=== PATIENT | female | born 1995 | race Asian ===

== ENCOUNTER 2019-09-12 13:03 | Emergency (ER) | payer MEDICAID, SELFPAY ==
--- NOTE | ~2019-09-12 | US_ITS ---
EXAMINATION: US OB <=14 wk fetus w TV EXAM DATE: 09/12/2019 15:11 INDICATION: Bleeding, passing clots. 1st trimester. TECHNIQUE: Pelvic obstetrical transabdominal sonogram was performed by a technologist. There are mu ltiple grayscale and Doppler images available for interpretation. There are no earlier studies of th is gestation for comparison. FINDINGS: Uterus measures 7.3 x 3.6 x 5.0 cm, is morphologically normal without evidence of intrauter ine . There is no free pelvic fluid. Right adnexa: The ovary is not identified. There is no adnexal mass. Left adnexa: The ovary is not identified. There is no adnexal mass. Early intrauterine or recent spontaneous are common causes of elevated beta hCG in absence of intrauterine confirmation. Ultrasound can sometimes identify, but never exclud e an ectopic in the setting of positive beta hCG. Follow up as warranted clinically with s erial beta hCG levels or ultrasound. IMPRESSION: 1. No intrauterine or extrauterine identified. Reviewed, dictated and finalized at location B.
[2019-09-12 13:07] VITALS: BP 127/79; PULSE 86; RESP 16; TEMP 37.1; O2SAT 100
[2019-09-12 13:26] LABS: Basophils Absolute Auto 0.1 K/mm3 (0.0-0.1); Basophils Percent Auto 0.7 % (0.2-1.2); Eosinophils Absolute Auto 0.1 K/mm3 (0-0.3); Eosinophils Percent Auto 1.4 % (0-4.4); Hematocrit 32.9 % (37.0-47.0); Hemoglobin 10.2 g/dL (12.0-15.0); Immature Granulocyte Absolute 0.02 K/mm3 (0.00-0.031); Immature Granulocyte Percent A 0.2 % (0-0.5); Lymphocytes Absolute Auto 1.62 K/mm3 (0.9-3.2); Mean Corpuscular Hemoglobin 23.2 pg (26-34); Mean Corpuscular Volume 74.9 fl (80-100); Mean Platelet Volume 9.6 fl (7.4-10.4); Monocytes Absolute Auto 0.5 K/mm3 (0.1-0.6); Monocytes Percent Auto 6.7 % (2.6-8.5); Neutrophils Absolute Auto 5.8 K/mm3 (1.3-6.7); Platelet Count Result 322 k/mm3 (150-375); Red Blood Count 4.39 M/mm3 (4.2-5.4); Red Cell Distribution Width 18.3 % (11.5-14.5); White Blood Count 8.1 K/mm3 (4.5-10.0)
[2019-09-12] MEDS: SODIUM CHLORIDE 0.9% IV 1,000 ML 999 ML IV CONT (15:07)
--- NOTE | 2019-09-12 15:51 | ED.ABDPAIN ---
HPI - Abdominal Pain General Chief Complaint: Vaginal Bleeding Stated Complaint: 8 weeks preg - bleeding Time Seen by Provider: 09/12/19 14:21 Source: patient Mode of arrival: ambulatory Limitations: no limitations and language barrier (Patient's family is present and translating effectively patient does speak sufficient Persian) History of Present Illness HPI narrative: Patient is a 23-year-old female who presents to emergency department with lower abdominal cramping and vaginal bleeding that started on Monday noting that she is G1, P0 was seen at an outside hospital had ultrasound showing intrauterine notes that she is roughly 14 weeks . Patient notes last night she began to have increasing bleeding passing larger clots with cramping that is intermittent in nature. 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 Related Data Home Medications Medication Instructions Recorded Confirmed No Home Medications 09/12/19 09/12/19 Allergies Allergy/AdvReac Type Severity Reaction Status Date / Time No Known Allergies Allergy Verified 09/12/19 15:09 Review of Systems Review of Systems: All systems reviewed & are unremarkable except as noted in HPI and below PMFSH Social History Social History (Updated 09/12/19 @ 16:00 by Kendall Conteh PA-C) Smoking status: Never smoker Exam Narrative: Exam Narrative: GENERAL: Well-appearing, well-nourished, and in no acute distress. HEAD: Normocephalic, atraumatic. EYES: PERRLA and EOMI. ENT: Nares clear, no rhinorrhea or epistaxis. Mucous membranes moist. CHEST: Clear to auscultation. No respiratory distress. No wheezes rales or rhonchi HEART: Regular rate and rhythm. No murmur heard. Normal peripheral pulses. ABDOMEN: Soft, nontender, nondistended FEMALE GENITOURINARY: Tissue in the vault which will be sent for pathology otherwise no heavy bleeding small amount of blood in the vaginal vault otherwise unremarkable exam EXTREMITIES: Normal range of motion. No edema. SKIN: Warm, dry, no rash. NEURO: No focal deficits. Alert and oriented x3. Cranial nerves II through XII grossly intact PSYCH: Normal mood and affect. Course Course Emergency Course: Patient in the room at this time aware of case findings treatment plan and diagnosis agreeing to follow-up as directed or to return if symptoms worsen or concerns Consultations Consultation #1: Discussed case with roads and parking lots sweeper operator who will follow the patient in clinic Date: 09/12/19 Time: 16:01 Vital Signs Vital signs: Vital Signs Temperature 98.7 F 09/12/19 13:07 Pulse Rate 86 09/12/19 13:07 Respiratory Rate 16 09/12/19 13:07 Blood Pressure 127/79 09/12/19 13:07 Pulse Oximetry 100 09/12/19 13:07 Temperature 98.7 F 09/12/19 13:07 Pulse Rate 86 09/12/19 13:07 Respiratory Rate 16 09/12/19 13:07 Blood Pressure 127/79 09/12/19 13:07 Pulse Oximetry 100 09/12/19 13:07 MDM - Abdominal Pain MDM Narrative Medical decision making narrative: Patient with miscarriage in the room in no distress aware of case findings treatment plan and discussion with roads and parking lots sweeper operator agreeing to follow-up as directed or to return if symptoms worsen or concerns Lab Data Result diagrams: 09/12/19 13:15 Labs: Lab Results 09/12/19 09/12/19 09/12/19 Range/Units 13:15 13:15 13:15 WBC 8.1 (4.5-10.0) K/mm3 RBC 4.39 (4.2-5.4) M/mm3 Hgb 10.2 L (12.0-15.0) g/dL Hct 32.9 L (37.0-47.0) % MCV 74.9 L (80-100) fl MCH 23.2 L (26-34) pg MCHC 31.0 L (32-36) g/dl RDW 18.3 H (11.5-14.5) % Plt Count 322 (150-375) k/mm3 MPV 9.6 (7.4-10.4) fl Immature Gran % (Auto) 0.2 (0-0.5) % Neut % (Auto) 71.0 (45.5-73.1) % Lymph % (Auto) 20.0 (18.3-44.2) % [place] % (Auto) 6.7 (2.6-8.5) % Eos % (Auto) 1.4 (0-4.4) % Baso % (Auto) 0.7 (0.2-1.2) % Lymph # (Auto) 1.62 (0.9-3.2) K/mm3 [place] # (Auto) 0.5 (0.1-0.6) K/mm3 Eos # (Auto) 0
--- NOTE | 2019-09-12 16:13 | PC.NURSE ---
call placed to [facility]ale[facility] to notify of demise
--- NOTE | 2019-09-12 17:07 | PC.NURSE ---
mts notified of .
[2019-09-12 17:08] VITALS: BP 120/70; PULSE 78; RESP 18; O2SAT 99
== END 2019-09-12 17:11 | disposition home or self-care (01) ==
PROVIDERS: Emergency Provider Emergency Medicine
DX: O03.9 Complete or unspecified spontaneous abortion without complication (principal)
CPT/HCPCS: 36415; 76801; 76817; 84702; 85025; 85461; 88305; 96360; 99284; J7030

== ENCOUNTER 2019-10-03 15:27 | Outpatient (RCR) | payer MEDICAID, SELFPAY ==
[2019-09-26 16:35] LABS: Beta HCG Quantitative 59.19 mIU/ML
== END 2019-12-18 23:59 | disposition home or self-care (01) ==
LOC: ANHLAB 15:27
PROVIDERS: PCP Obstetrics & Gynecology; Visit Provider Obstetrics & Gynecology
DX: O03.9 Complete or unspecified spontaneous abortion without complication (principal)
CPT/HCPCS: 36415; 84702

== ENCOUNTER 2019-10-10 15:20 | Outpatient (CLI) | payer MEDICAID, SELFPAY ==
[2019-10-10 16:18] LABS: Beta HCG Quantitative < 2.39 mIU/ML
== END 2019-10-10 15:21 | disposition home or self-care (01) ==
PROVIDERS: PCP Obstetrics & Gynecology; Visit Provider Obstetrics & Gynecology
DX: O03.9 Complete or unspecified spontaneous abortion without complication (principal); Z3A.00 Weeks of gestation of pregnancy not specified
CPT/HCPCS: 36415; 84702

== ENCOUNTER → 2021-04-05 00:46 | Outpatient (CLI) | payer OTHER, SELFPAY ==
[2021-04-06 10:58] LABS: SARS-CoV-2 RNA PCR Negative
== END ==
PROVIDERS: PCP Family Medicine; Visit Provider Family Medicine
DX: R05.1 Acute cough (principal); Z20.822 Contact with and (suspected) exposure to COVID-19
CPT/HCPCS: C9803; U0003; U0005

== ENCOUNTER 2021-05-10 14:55 | Outpatient (CLI) | payer OTHER, SELFPAY ==
--- NOTE | ~2021-05-10 | US_ITS ---
EXAMINATION: US OB <= 14 weeks fetus DATE: 05/10/2021 16:04 INDICATION: First trimester dating TECHNIQUE: Real-time pelvic transabdominal and transvaginal ultrasound was performed. COMPARISON: None. FINDINGS: The uterus measures 9.1 x 6.1 x 7 cm. There is an intrauterine gestational sac. A yolk sac is identified. heart motion is identified measuring 176 beats per minute (bpm) by M-mode Doppl er. The crown rump length measures 2.0 cm , which correlates with an estimated gestational age of 8 weeks and 4 day(s) (+/-) 5 day(s). The left ovary is not visualized however no left adnexal abnormality is seen. The right ovary measure s 3.7 x 2.9 x 3.0 cm. There is normal vascular flow in the right ovary. There is no free fluid in the pelvis. IMPRESSION: 1. Live intrauterine with an estimated gestational age of 8 weeks and 4 day(s) (+/-) 5 day( s) and an estimated delivery date of 12/16/2021. Reviewed, dictated and finalized at location F. RUNNER IMPRESSION: 1. Live intrauterine with an estimated gestational age of 8 weeks and 4 day(s) (+/-) 5 day(s) and an estimated delivery date of 12/16/2021.
== END 2021-05-10 14:56 | disposition home or self-care (01) ==
PROVIDERS: PCP Family Medicine; Visit Provider Obstetrics & Gynecology
DX: Z36.9 Encounter for antenatal screening, unspecified (principal); Z3A.08 8 weeks gestation of pregnancy
CPT/HCPCS: 76801

== ENCOUNTER 2021-11-05 15:22 | Outpatient (RCR) | payer SELFPAY | END 2021-12-17 13:42 | disposition home or self-care (01) | LOC: ANHDMC 15:22 | PROVIDERS: PCP Family Medicine; Visit Provider Obstetrics & Gynecology | DX: O24.419 Gestational diabetes mellitus in pregnancy, unspecified control (principal); Z3A.00 Weeks of gestation of pregnancy not specified; Z71.89 Other specified counseling | CPT/HCPCS: G0108 ==

== ENCOUNTER 2021-12-09 17:03 | Outpatient (RCR) | payer OTHER, SELFPAY ==
[2021-10-28 18:00] VITALS: BP 109/66; PULSE 83
[2021-11-11 17:56] VITALS: BP 116/68; PULSE 83
[2021-11-18 17:16] VITALS: BP 114/64; PULSE 89
[2021-11-23 17:04] VITALS: BP 120/77; PULSE 98
[2021-11-26 15:24] VITALS: BP 106/70; PULSE 91
[2021-11-29 16:33] VITALS: BP 112/64; PULSE 82
[2021-12-06 16:55] VITALS: BP 110/76; PULSE 92
--- NOTE | 2021-12-06 18:20 | PC.NURSE ---
Called Dr. Han with ultrasound report. Informed of 2 variables noted on NST, but otherwise reactive. BPP 8/8 and MATTEO is 7.7, which is down from MATTEO of 16.9 one week ago. Will do ROM plus. If negative, may D/C home.
--- NOTE | ~2021-12-09 | US_ITS ---
EXAMINATION: US OB limited DATE: 11/18/2021 17:49 INDICATION: Assess amniotic fluid index during third trimester of TECHNIQUE: Real-time ultrasound of the pelvis was performed. The interpreting radiologist was not pre sent for the study. COMPARISON: None. FINDINGS: There is a single living fetus in vertex presentation which obscures the region of the cervix. The p lacenta is anterior. heart rate is 167 beats per minute (bpm). The amniotic fluid index is 13.4 cm, which is normal. IMPRESSION: 1. Single living fetus in vertex presentation with heart rate of 167 bpm. 2. Normal amniotic fluid index of 13.4 cm. Reviewed, dictated and finalized at location A. IMPRESSION: 1. Single living fetus in vertex presentation with heart rate of 167 bpm . 2. Normal amniotic fluid index of 13.4 cm.
--- NOTE | ~2021-12-09 | US_ITS ---
EXAMINATION: US OB follow up w BPP DATE: 11/12/2021 16:21 INDICATION: Amniotic fluid index: Biophysical profile, and biometric assessment during third trimeste r TECHNIQUE: Real-time pelvic ultrasound was performed. The interpreting radiologist was not present fo r the study. COMPARISON: None. FINDINGS: There is a single living fetus in vertex presentation. The placenta is anterior. heart rate is 165 beats per minute (bpm). The amniotic fluid index is 16.7 cm which is normal (normal range: 8.1 cm to 24.8 cm). Biophysical profile performed by the technologist: breathing (30 sec sustained breathing in 30 minutes): 2 out of 2 movement (3 gross body movements in 30 minutes): 2 out of 2 tone (one episode of jyhofyt-kxxjhlcvd-cezqgua limb movement): 2 out of 2 Amniotic fluid pocket (2 cm): 2 out of 2 Total score: 8 out of 8 The following biometric data were obtained: Biparietal diameter (BPD): 8.4 cm; head circumference (HC): 32.1 cm; abdominal circumference (AC): 34 .1 cm; femur length (FL): 7.3 cm. These measurements are concordant. Estimated weight is 3125 g +/- 468 g, which correlates with the 96th percentile when 12/18/2021 is used as estimated date of delivery. As single measurements, these parameters are each equal to the following estimated gestational ages w ith ranges of +/- 2 standard deviations: BPD: 33 weeks 5 days +/- 3 weeks 1 days. HC: 36 weeks 2 days +/- 2 weeks 5 days. AC: 38 weeks 1 days +/- 3 weeks 0 days. FL: 37 weeks 1 days +/- 3 weeks 1 days. estimated gestational age based solely on measurements from this exam is 36 weeks 2 days +/- 2 weeks 4 days. IMPRESSION: 1. Single living fetus in vertex presentation. 2. Biophysical profile 8 out of 8. 3. Normal amniotic fluid index. 4. Estimated weight is 3125 g +/- 468 g, which correlates with the 96th percentile when 12/19/19 22 is used as estimated date of delivery. Reviewed, dictated and finalized at location B. IMPRESSION: 1. Single living fetus in vertex presentation. 2. Biophysical profile 8 out of 8. 3. Normal amniotic fluid index. 4. Estimated weight is 3125 g +/- 468 g, which correlates with the 96th p ercentile when 12/18/2021 is used as estimated date of delivery.
--- NOTE | ~2021-12-09 | US_ITS ---
EXAMINATION: US OB limited w BPP DATE: 12/06/2021 17:25 INDICATION: Gestational diabetes. Evaluate biophysical profile and MATTEO. TECHNIQUE: Real-time ultrasound of the pelvis was performed. COMPARISON: 11/29/2021. FINDINGS: There is a single living fetus in vertex presentation, longitudinal lie. The placenta is anterior an d appears to be clear of the cervical os. The cervix is partially obscured by head position but appea rs to be closed. heart rate is 137 beats per minute (bpm). The amniotic fluid index is 7.7 cm, which is at the lower end of the normal range.] Biophysical profile performed by the technologist: breathing (30 sec sustained breathing in 30 minutes): 2 out of 2 movement (3 gross body movements in 30 minutes: 2 out of 2 tone (one episode of oosrkys-ulrebhcii-yybkoxz limb movement): 2 out of 2 Amniotic fluid pocket (2 cm): 2 out of 2 Total score: 2 out of 8 IMPRESSION: 1. Single living fetus in vertex presentation. 2. Biophysical profile 8 out of 8. 3. Low-normal MATTEO of 7.7 cm. Reviewed, dictated and finalized at location K.
--- NOTE | ~2021-12-09 | US_ITS ---
EXAMINATION: US OB limited DATE: 11/29/2021 17:16 INDICATION: GDM and MATTEO TECHNIQUE: Real-time ultrasound of the pelvis was performed. COMPARISON: 11/26/2021. FINDINGS: There is a single living fetus in vertex presentation, longitudinal lie. The placenta is anterior. F etal heart rate is 121 beats per minute (bpm). The amniotic fluid index is 16.9 cm, which is normal ( 5th to 95th percentile range is 7.5-24.4 cm. IMPRESSION: 1. Single living fetus in vertex presentation. 2. MATTEO 16.9 cm, which is normal. Reviewed, dictated and finalized at location K.
--- NOTE | ~2021-12-09 | US_ITS ---
EXAMINATION: US OB limited DATE: 11/26/2021 16:00 INDICATION: Gestational diabetes. Third trimester. TECHNIQUE: Real-time ultrasound of the pelvis was performed. COMPARISON: Ultrasound 11/23/2021, 05/10/2021 FINDINGS: There is a single fetus in vertex presentation. The placenta is anterior. heart rate is 149 be ats per minute (bpm). The amniotic fluid index is 12.5 cm cm, which is normal. The following biometric data were obtained: Biparietal diameter (BPD): 8.8 cm; head circumference (HC): 33.0 cm; abdominal circumference (AC): 32 .3 cm; femur length (FL): 7.3 cm. These measurements are concordant. Estimated weight is 2972 g +/- 446 g, which correlates with the 47th percentile when 12/18/21 is used as estimated date of delivery. As single measurements, these parameters are each equal to the following estimated gestational ages: BPD: 35 weeks 2 days. HC: 37 weeks 4 days. AC: 36 weeks 2 days. FL: 37 weeks 3 days. estimated gestational age based solely on measurements from this exam is 36 weeks 5 days +/- 2 weeks 4 days. IMPRESSION: 1. Single living fetus in vertex presentation. 2. Estimated weight is 2972 g +/- 446 g, which correlates with the 47th percentile when 2 is used as estimated date of delivery. Note that the estimated date of delivery from the first ultr asound on 05/10/2021 was 12/16/2021. Reviewed, dictated and finalized at location A. IMPRESSION: 1. Single living fetus in vertex presentation. 2. Estimated weight is 2972 g +/- 446 g, which correlates with the 47th percentile when 12/18/21 is used as estimated date of delivery. Note that the es timated date of delivery from the first ultrasound on 05/10/2021 was 12/16/2021.
--- NOTE | ~2021-12-09 | US_ITS ---
US OB limited 12/09/2021 17:36 Indication: Evaluate amniotic fluid index. Procedure: High-resolution Limited obstetrical ultrasound using transabdominal technique Comparison: Ultrasound dated 12/06/2021 Findings: There is a single living intrauterine in vertex presentation. heart rate is 130 BPM. Placenta is anterior without previa. Amniotic fluid index is 7.72 (normal range for gestati onal age is 7.3-23.7 cm). The placenta is anterior. Impression: 1: Normal MATTEO measures 17.72 cm. Reviewed, dictated and finalized at location A. Impression: 1: Normal MATTEO measures 17.72 cm.
--- NOTE | ~2021-12-09 | US_ITS ---
EXAMINATION: US OB limited w BPP DATE: 10/28/2021 17:26 CDT INDICATION: Amniotic fluid index. Evaluate well-being. TECHNIQUE: Real-time transabdominal obstetric ultrasound. FINDINGS: No prior studies for comparison. There is a single living fetus in vertex presentation. The placenta is anterior without placenta pre via. cardiac activity and movement is noted with a heart rate of 135 beats per minute. N ormal MATTEO measures 14.8 cm. Biophysical profile: breathin of 2 movement: 2 of 2 tone: 2 of 2 Amniotic flud pocket: 2 of 2 Total score: 8 of 8 IMPRESSION: 1. Single living intrauterine in vertex presentation. 2: Total biophysical profile score of 8/8. 3: Normal MATTEO measures 14.8 cm. Reviewed, dictated and finalized at location A.
--- NOTE | ~2021-12-09 | US_ITS ---
EXAMINATION: US OB limited DATE: 11/23/2021 17:36 INDICATION: Gestational diabetes. Third trimester. TECHNIQUE: Real-time ultrasound of the pelvis was performed. COMPARISON: Ultrasound 11/18/2021 FINDINGS: There is a single fetus in vertex presentation. The placenta is anterior. heart rate is 146 be ats per minute (bpm). The amniotic fluid index is 15.8 cm, which is normal. IMPRESSION: 1. Single living fetus in vertex presentation. 2. Normal amniotic fluid index. Reviewed, dictated and finalized at location E.
[2021-12-09 17:45] VITALS: BP 118/77; PULSE 93
== END 2022-01-26 23:59 | disposition home or self-care (01) ==
LOC: ANHOBOP 17:03
PROVIDERS: PCP Family Medicine; Visit Provider Obstetrics & Gynecology
DX: O36.8330 Maternal care for abnormalities of the fetal heart rate or rhythm, third trimester, not applicable or unspecified (principal); O36.8130 Decreased fetal movements, third trimester, not applicable or unspecified; O24.419 Gestational diabetes mellitus in pregnancy, unspecified control; Z3A.32 32 weeks gestation of pregnancy; Z3A.34 34 weeks gestation of pregnancy; Z3A.38 38 weeks gestation of pregnancy
CPT/HCPCS: 59025; 76815; 76816; 76819; 84112

== ENCOUNTER 2021-12-12 13:56 | Inpatient (IN) | payer OTHER, SELFPAY ==
[2021-12-12] VITALS (30 sets, daily range): BP systolic 91–127; BP diastolic 60–94; PULSE 71–191; TEMP 35.9–36.6; O2SAT 98; BMI 31.0
--- OUTSIDE RECORDS SUMMARY | 2021-12-12 16:24 | XMS_ITS ---
:1995 Author Care Team Providers Name Role Phone KAYLEIGH LOPEZ MD Primary Care Provider [phone] Allergies Code Code System Name Reaction Severity Status Onset NKDA ? Medications Name Status Start Date Stop Date ? ? azithromycin 250 mg tablet Active ? Not a vailable benzonatate 200 mg capsule Active ? Not a vailable cyanocobalamin (vit B-12) 1,000 mcg/mL injection solution Active ? Not available Inject 1 mL every month by subcutaneous route. ergocalciferol (vitamin D2) 1,250 mcg (50,000 unit) capsule Acti ve ? Not available Take 1 capsule every week by oral route as directed. ferrous sulfate 325 mg (65 mg iron) tablet Active ? Not available Take 1 tablet twice a day by oral route with meals. ferrous sulfate 325 mg (65 mg iron) tablet,delayed Active ? Not available release Flublok Quad 0496-9183 (PF) 180 mcg (45 mcg x 4)/0.5 mL Complete d ? 04/06/2020 IM syringe ondansetron 4 mg disintegrating tablet Active ? Not available prednisone 10 mg tablet Active ? Not avai lable sumatriptan 50 mg tablet Active ? Not gilbert ilable triamcinolone acetonide 0.1 % topical cream Active ? Not available Problems Name Status Onset Date Source ? 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 Vitamin D Deficiency Active 08/03/2020 ? Anemia Active 08/03/2020 ? Menorrhagia Active 11/04/2020 ? Procedures None recorded. Results Lab Results
--- OUTSIDE RECORDS SUMMARY | 2021-12-12 16:24 | XMS_ITS ---
:1995 Author Care Team Providers Name Role Phone KAYLEIGH LOPEZ MD Primary Care Provider [phone] Allergies Code Code System Name Reaction Severity Status Onset NKDA ? Medications Name Status Start Date Stop Date ? ? Flublok Quad (PF) 180 mcg (45 mcg x 4)/0.5 mL Complete d ? 04/06/2020 IM syringe sumatriptan 50 mg tablet Active ? Not gilbert ilable triamcinolone acetonide 0.1 % topical cream Active ? Not available Problems Name Status Onset Date Source ? Migraine without Aura Active 04/06/2020 ? Fatigue Active 04/06/2020 ? 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 Procedures None recorded. Results Lab Results None recorded. Past Encounters None recorded. Social History Tobacco Smoking Status Never Smoker Vaccine List None recorded. Plan of Care Reminders Provider Appointments None recorded. ? ? Lab None recorded. ? ? Referral None recorded. ? ? Procedures None recorded. ? ? Surgeries None recorded. ? ? Imaging None recorded. ? ? Vitals 04/29/2020 03:45PM FOLLOW UP Height Weight BMI Blood Pressure 4 ft 9 in 111 lbs 24 kg/m2 106/76 mm[Hg] 04/06/2020 04:00PM [facility] NEW PT Height Weight BMI Blood Pressure 4 ft 9 in 112 lbs 24.2 kg/m2 120/62 mm[Hg]
--- NOTE | 2021-12-12 16:59 | LDADM ---
This patient, Tina Marie, was admitted to Labor/Delivery/Recovery 106 on 12/12/21 at 13:56. Plans for labor, pain management and were discussed with patient. Patient/family oriented to hospital policies and general routines including ID bracelet, bed and alarms, visiting hours, pain management, procedures, bathroom and other care routines, personal items, smoking policy, room service/diet and guest tray routines, infant security routines, and visiting hours. Patient/Family are encouraged to report perceived risks to care and to ask questions if they do not understand what they are told or what they should do. See OBIX for further documentation.
[2021-12-12] MEDS: OXYTOCIN 30 UNITS/NS 500 ML 30 UNITS/500 ML BAG 6 UNITS IV CONT (17:20)
[2021-12-12] MEDS: LACTATED RINGERS 1,000 ML 125 ML IV CONT (17:22)
[2021-12-12 17:26] LABS: Basophils Absolute Auto 0.1 K/mm3 (0.0-0.1); Basophils Percent Auto 0.4 % (0.2-1.2); Eosinophils Percent Auto 0.1 % (0-4.4); Hematocrit 39.3 % (37.0-47.0); Hemoglobin 13.2 g/dL (12.0-15.0); Immature Granulocyte Absolute 0.14 K/mm3 (0.00-0.031); Lymphocytes Absolute Auto 1.29 K/mm3 (0.9-3.2); Lymphocytes Percent Auto 8.8 % (18.3-44.2); Mean Corpuscular HGB Conc 33.6 g/dl (32-36); Mean Corpuscular Hemoglobin 27.8 pg (26-34); Mean Corpuscular Volume 82.7 fl (80-100); Mean Platelet Volume 9.8 fl (7.4-10.4); Monocytes Absolute Auto 0.7 K/mm3 (0.1-0.6); Monocytes Percent Auto 4.6 % (2.6-8.5); Neutrophils Absolute Auto 12.5 K/mm3 (1.3-6.7); Neutrophils Percent Auto 85.1 % (45.5-73.1); Platelet Count Result 164 k/mm3 (150-375); Red Blood Count 4.75 M/mm3 (4.2-5.4); Red Cell Distribution Width 19.1 % (11.5-14.5); White Blood Count 14.7 K/mm3 (4.5-10.0)
--- NOTE | 2021-12-12 17:55 | WPDANESEPP ---
Anes - Eval Pre Procedure Procedure: labor epidural Date/Time: 12/12/21 17:55 Surgeon: charline Preop Diagnosis: pain during labor Pre Op Diagnosis: IOL Patient Data Age: 26 Gender: F Height: 1.45 m Weight: 65 kg Last Vital Signs Pulse 93 12/12/21 17:45 BP 125/83 12/12/21 17:45 O2 Del Method Room Air 12/12/21 16:53 Allergies Allergy/AdvReac Type Severity Reaction Status Date / Time No Known Allergies Allergy Verified 12/12/21 17:09 Home Medications Medication Instructions Recorded Confirmed Type vitamin #56-iron 35 mg 1 cap PO DAILY #90 caps 05/20/21 12/12/21 Rx and 5 mg-folic acid 1 mg-dha capsule ferrous sulfate 325 mg (65 mg 325 mg PO TID #270 tabs 09/30/21 12/12/21 Rx iron) tablet blood-glucose meter #1 ea 11/09/21 11/28/21 Rx Vitamin D3 3,000 units PO DAILY 11/23/21 12/12/21 History lancets 30 gauge and blood glucose #50 ea 11/23/21 11/28/21 Rx strips combo pack blood sugar diagnostic (Blood #50 ea 12/06/21 Rx Glucose Test strips) insulin NPH isoph U-100 human 100 28 unit subcut DAILY 12/12/21 12/12/21 History unit/mL (3 mL) subcutaneous pen (Humulin N NPH U-100 Insulin KwikPen) insulin lispro 100 unit/mL 16 unit subcut DAILY 12/12/21 12/12/21 History subcutaneous pen Laboratory Tests 12/12/21 12/12/21 12/12/21 16:39 16:39 16:39 WBC 14.7 K/mm3 H K/mm3 (4.5-10.0) RBC 4.75 M/mm3 M/mm3 (4.2-5.4) Hgb 13.2 g/dL D g/dL (12.0-15.0) Hct 39.3 % % (37.0-47.0) MCV 82.7 fl fl (80-100) MCH 27.8 pg pg (26-34) MCHC 33.6 g/dl g/dl (32-36) RDW 19.1 % H % (11.5-14.5) Plt Count 164 k/mm3 k/mm3 (150-375) MPV 9.8 fl fl (7.4-10.4) Immature Gran % (Auto) 1.0 % H % (0-0.5) Neut % (Auto) 85.1 % H % (45.5-73.1) Lymph % (Auto) 8.8 % L % (18.3-44.2) [place] % (Auto) 4.6 % % (2.6-8.5) Eos % (Auto) 0.1 % % (0-4.4) Baso % (Auto) 0.4 % % (0.2-1.2) Lymph # (Auto) 1.29 K/mm3 K/mm3 (0.9-3.2) [place] # (Auto) 0.7 K/mm3 H K/mm3 (0.1-0.6) Eos # (Auto) 0.0 K/mm3 K/mm3 (0-0.3) Baso # (Auto) 0.1 K/mm3 K/mm3 (0.0-0.1) Abs Immat Gran (auto) 0.14 K/mm3 H K/mm3 (0.00-0.031) Absolute Neuts (auto) 12.5 K/mm3 H K/mm3 (1.3-6.7) Absolute Nucleated RBC 0.0 K/mm3 K/mm3 (0.0-0.012) Nucleated RBC % 0.0 % % (0.0-0.2) RPR Pending Blood Type Pending Antibody Screen Pending Patient hx anesthesia problems: none Family hx anesthesia problems: none Results Review: All pre-operative results and documents have been reviewed as part of the pre-operative evaluation. [facility] Past Medical History Medical History Miscarriage within last 12 months No active medical problems Surgical History Surgical History No pertinent past surgical history Family History Family History Other No pertinent family history Social History Social History Smoking status: Never smoker Substance use: never Spiritual care concerns: No Exam Day of Procedure 12/12/21 17:55
--- NOTE | 2021-12-12 18:00 | PC.NURSE ---
Spoke with Dr. Han at 1611. Informed patient's cervical exam is unchanged from admission, but patient had a FHR deceleration lasting 2.5 minutes. Received verbal orders to keep and induce patient with high dose oxytocin.
--- NOTE | 2021-12-12 18:02 | PC.NURSE ---
Used [employer] literacy teacher to complete patient's admission questions and induction education. [employer] literacy teacher ID: [id number]. Patient's primary language is Gujarati.
[2021-12-12 18:50] LABS: Glucose Point of Care 61 mg/dl (65-105)
[2021-12-12 22:38] LABS: Glucose Point of Care 74 mg/dl (65-105)
[2021-12-13] VITALS (291 sets, daily range): BP systolic 79–174; BP diastolic 45–118; PULSE 25–198; RESP 16–18; TEMP 36–37; O2SAT 68–100
[2021-12-13] MEDS: LACTATED RINGERS 1,000 ML 125 ML IV CONT ×4 (00:08→10:42)
--- NOTE | 2021-12-13 01:58 | PM.IMHP ---
H&P: HPI History of Present Illness Date/Time: 12/13/21 01:58 Chief Complaint: Vaginal bleeding Narrative: [employer] tabulating clerk services used during encounter. Patient's primary language is Gujarati, however, an tabulating clerk for this language was unavailable. Patient stated that she is also able to speak Minda. Therefore Imnda tabulating clerk, Janina (ID# [id number]), was used. Patient is a 26-year-old LMP 03/13/2021 currently 39 weeks 2 days gestation with JOHANNA 12/18/2021 who presented to labor and delivery during the afternoon of 12/12/2021 at 39 weeks 1 day gestation with complaints of vaginal bleeding. Patient is dated by LMP c/w US on 05/11/21 at 8w gestation. At approximately 2:00 p.m., patient noticed a small amount of vaginal bleeding. She was concerned and presented to labor and delivery for further evaluation. Patient denied any contractions or leakage of fluid. Reported good movement. During evaluation, patient was noted to be approximately 3 cm dilated with likely bloody show due to early labor phase. Also during evaluation, a spontaneous deceleration was noted that recovered. Decision made to admit patient to labor and delivery and proceed with labor augmentation. course complicated by diagnosis of gestational diabetes which is controlled with insulin. Review of Systems Review of Systems: All systems reviewed & are unremarkable except as noted in HPI and below Constitutional: Constitutional: Reports as per HPI and Reports no additional constitutional complaints Eyes: Eyes: Reports as per HPI and Reports no additional eye complaints ENT: Reports system reviewed and no additional complaints, except as documented and Reports as per HPI Cardiovascular: Cardiovascular: Reports as per HPI and Reports no additional cardiovascular complaints Respiratory: Respiratory: Reports as per HPI and Reports no additional respiratory complaints Gastrointestinal: Gastrointestinal: Reports as per HPI and Reports no additional gastrointestinal complaints Genitourinary: Genitourinary: Reports no additional female genitourinary complaints and Reports as per HPI Musculoskeletal: Musculoskeletal: Reports no additional musculoskeletal complaints and Reports as per HPI Integumentary/Breasts: Skin/Breast: Reports system reviewed and no additional complaints, except as docu and Reports as per HPI Neurologic: Reports system reviewed and no additional complaints, except as documented and Reports as per HPI Psychiatric: Psychiatric: Reports no additional psychiatric complaints and Reports as per HPI Endocrine: Endocrine: Reports no additional endocrine complaints and Reports as per HPI Hematologic/Lymphatic: Hematologic/Lymphatic: Reports no additional hematologic/lymphatic complaints and Reports as per HPI Allergic/Immunologic: Allergic/Immunologic: Reports no additional allergic/immunologic complaints and Reports as per HPI PMFSH Past Medical History Medical History Miscarriage within last 12 months No active medical problems Surgical History Surgical History No pertinent past surgical history Family History Family History Other No pertinent family history Social History Social History Smoking status: Never smoker Substance use: never Spiritual care concerns: No Meds Home Medications and Allergies Home Medications Medication Instructions Recorded Confirmed Type vitamin #56-iron 35 mg 1 cap PO DAILY #90 caps 05/20/21 12/12/21 Rx and 5 mg-folic acid 1 mg-dha capsule ferrous sulfate 325 mg (65 mg 325 mg PO TID #270 tabs 09/30/21 12/12/21 Rx iron) tablet blood-glucose meter #1 ea 11/09/21 11/28/21 Rx Vitamin D3 3,000 units PO DAILY 11/23/21 12/12/21 History lancets 30 gauge and blood
--- NOTE | 2021-12-13 01:58 | PM.OBPNLAB ---
Pain Control Date/time seen: 12/13/21 01:58 Called by RN and asked to come in to evaluate tracing. Prolonged deceleration for approx. 7 mins. noted after epidural administration. Tracing currently recovered to baseline and is category 1. Through [employer] spanish interpreter services (Janina [id number]), situation discussed with patient and family. SVE /-2. AROM performed, meconium stained fluid noted. IUPC placed. Western shows contractions q2-3 mins. Will continue to monitor. Plan is to restart pitocin.
--- NOTE | 2021-12-13 02:21 | WPDHPUPDATE1 ---
History and Physical Update Update Date/Time: 12/13/21 02:21 History and Physical has been reviewed, including an updated exam of the patient. There are NO changes in the patient's condition. Risks, benefits, and alternatives have been discussed and questions answered. Patient agrees to proceed with procedure.
[2021-12-13 02:29] LABS: Glucose Point of Care 109 mg/dl (65-105)
[2021-12-13 04:28] LABS: Glucose Point of Care 93 mg/dl (65-105)
[2021-12-13 06:39] LABS: Glucose Point of Care 67 mg/dl (65-105)
[2021-12-13 07:53] LABS: Rapid Plasma Reagin Non-Reactive (NonReactive)
[2021-12-13 08:27] LABS: Glucose Point of Care 62 mg/dl (65-105)
[2021-12-13] MEDS: LIDOCAINE HCL 1% PF 30 ML VIAL (11:44)
[2021-12-13] MEDS: OXYTOCIN 30 UNITS/NS 500 ML 30 UNITS/500 ML BAG 125 UNITS IV CONT (11:56)
[2021-12-13] MEDS: ceFAZolin 2 GM/D5W 50 ML 2 GM/50 ML BAG IVPB (13:48)
[2021-12-13] MEDS: IBUPROFEN 600 MG TABLET PO ×2 (13:53→23:31)
--- NOTE | 2021-12-13 14:47 | P.PCNOB_ITS ---
OB - Delivery Note Procedure Delivery date: 12/13/21 Procedure: Spontaneous vaginal delivery Events: Gestational Diabetes Induction method: Per Pitocin Protocol Delivery augmentation: Rupture of Membranes Delivery monitor: External FHT and Internal Uterine Route of delivery: Episiotomy description: None Laceration Description: Perineal - 4th Degree Delivery repair: vicryl (3.0 vicryl) Specimen: Yes (placenta and cord) Quantitative Blood Loss (ml): 450 Anesthesia type: Epidural Disposition: Floor Complications: None Narrative: She was admitted in early labor after a spontaneous deceleration was present. She was 3 cm. She had labor augmented with pitocin. During labor she had a 7 minute deceleration. Her cervix was 6 cm at that time. She had assisted rupture of membranes and thick meconium noted. The tracing improved. She continued to progress in labor. She was completed dilated at approximately 8am the morning of 12/13/2021. [employer] Technician services were used to instruct on pushing initially. She pushed for approximately 2 hours and started . She delivered a female . The anterior shoulder was delivered and nose and mouth suctioned. The rest of the baby was delivered. Thick meconium noted. The infant was vigorous and crying and placed on maternal abdomen. Delayed cord clamping for approximately 40 sec until cord was apulsatile. The was then doubly clamped and cut. The placenta delivered spontaneously and intact. Cord blood and venous gases from cord obtained. Unable to obtain arterial gases. She sustained a fourth degree laceration which was repaired with 3.0 vircryl. Sponge count correct. Baby Date of : 12/13/21 Time of : 11:32 Weeks of gestation at delivery: 39 Infant gender: Female Weight (pounds): 8 Weight (ounces): 1 presentation: vertex position: Left Occiput Anterior Placenta delivery description: Spontaneous Cord Vessel Description: 3 Vessels, Clamped/Cut and Delayed Cord Clamping score one minute: 8 score five minutes: 9 AMG Delivery Billing Delivery Delivery: Delivery Charge
--- NOTE | 2021-12-13 15:15 | PC.NURSE ---
Patient transferred to post room #283 via [id number]. Support person present. Oriented to unit, room, information board, rooming in, admission packet and security measures. Patient verbalizes understanding.
[2021-12-13] MEDS: ACETAMINOPHEN 325 MG TABLET 650 MG PO (16:04)
[2021-12-13] MEDS: SIMETHICONE 80 MG TAB.CHEW PO (23:32)
[2021-12-14 01:00] VITALS: BP 85/52; PULSE 104; RESP 18; TEMP 36.6; O2SAT 100
[2021-12-14 05:35] VITALS: BP 88/48; PULSE 89; RESP 18; TEMP 36.5; O2SAT 100
[2021-12-14 06:19] LABS: Hematocrit 25.7 % (37.0-47.0); Hemoglobin 8.8 g/dL (12.0-15.0)
[2021-12-14 07:30] VITALS: BP 103/63; PULSE 81; RESP 16; TEMP 36.8; O2SAT 100
[2021-12-14] MEDS: POLYSACCHARIDE IRON COMPLEX 150 MG CAPSULE PO ×2 (07:41→16:37)
[2021-12-14] MEDS: IBUPROFEN 600 MG TABLET PO ×2 (07:41→15:10)
[2021-12-14] MEDS: MULTIVIT/MIN/PREN/FOL AC/IRON TABLET 1 TAB PO (07:41)
[2021-12-14] MEDS: DOCUSATE SODIUM 100 MG CAPSULE PO ×2 (07:41→16:37)
--- NOTE | 2021-12-14 10:20 | WPDANLDPN2 ---
Anes-Prog Note L&D Date/Time: 12/14/21 10:20 Comfortable throughout: labor and delivery Neuraxial method: epidural Epidural/Spinal procedure site: clean & non-tender Neuro status: Neuro function grossly intact. Cardiovascular status: normal Respiratory status: normal Airway patency: baseline Mental status: baseline Post-Op hydration status: normal Vital Signs: Last Vital Signs Temp 36.8 C 12/14/21 07:30 Pulse 81 12/14/21 07:30 Resp 16 12/14/21 07:30 BP 103/63 12/14/21 07:30 Pulse Ox 100 12/14/21 07:30 O2 Del Method Room Air 12/14/21 07:30 Pain score (VAS): 2 I/O: Intake & Output 12/13/21 12/14/21 12/14/21 23:59 07:59 15:59 Intake Total 50 Balance 50 Patient feedback: Patient satisfied with anesthetic care.
--- NOTE | 2021-12-14 12:19 | P.PNOB_ITS ---
OB - PN: Subj Subjective Date/time seen: 12/14/21 12:19 Patient comments: pain well controlled, tolerating diet and other (lochia light to moderate; no lightheadedness or dizziness) baby status: doing well and nursing well feeding status: breast and bottle feeding Narrative: [employer]ae implementation manager services used ( [employer]) #[id number] OB - PN: Obj Data Labs CBC & Chem 7: 12/14/21 05:12 Labs: Laboratory Results - last 24 hr 12/14/21 05:12 Hgb 8.8 L D Hct 25.7 L OB - PN A/P Plan day: 1 Plan: routine care Comments: Patient doing well. Discussed with her necessary pericare. Will discuss with nurse about her making sure area is clean. Asymptomatic anemia. Continue iron supplementation. Time Spent With Patient Time: Total time spent is greater than 50% in coordination of care (as documented) at patient's floor/unit and/or counseling patient: Exam Psych: Affect: normal affect Other: Abd: fundus firm below umbilicus, nontender Perineum: healing, Ext: nontender
--- NOTE | 2021-12-14 13:46 | PC.NURSE ---
[phone] Katty [employer] equipment operator Olivia #[id number] facilitated with introductions, then consulted with patient to assess needs related to . Mother led the conversation with her?plans to feed?her infant and the?experience so far. Resources provided for inpatient and outpatient services using a resource guide and mom/baby guide. Mother voiced understanding of information and requests conversation on learning for the next feeding since she had just finished bottle feeding 15 mls of formula to her infant at 1130. Encouraged understanding of the benefits of skin to skin (unwrapping infant and placing vertically on her chest), responsive feeding and how to watch for early feeding signs, frequency of feeding on demand about every 8-12 times in 24 hours (every 2-3 hours), milk production, asymmetrical latch (off-center), and leading with the chin with a big, wide open gape,hand expression with clean hand for encouraging , prevention and treatment of engorgement. Breast pump provided prior to RN meeting patient due to ineffective . Instructions given on cleaning, care, usage, that there should be no pain, pumping schedule for milk production, collection, storage of human milk and adequate milk production with either effectively or pumping every 3 hours (8 times in 24 hours) 1-2 times at night. Mother voiced understanding of the education shared along with mom and baby guide for additional resource information and will call after placing skin to skin Resources used to facilitate learning were used with the visual handouts, tool, mom and baby guide. Mother voiced understanding of responsive feedings with encouraging if it has been 2 -3 hours since the start of the last , to call if infant does not latch or there is discomfort with . Mother states she will call for the next feeding.
[2021-12-14] MEDS: ACETAMINOPHEN 325 MG TABLET 650 MG PO (16:40)
[2021-12-14 19:30] VITALS: BP 96/46; PULSE 72; RESP 16; TEMP 36.5; O2SAT 100
--- NOTE | 2021-12-15 07:00 | PC.NURSE ---
PT introductions made and plan of care discussed per post , pain management, breast /bottle feeding, daily care activities. PT sole recipient of such instructions and language a barrier to understanding. Language line available if necessary. PT given instructions per one to one discussion and demonstration and language line. and mom baby care guide book. PT verbalized understanding of such care.
[2021-12-15 08:40] VITALS: BP 108/61; PULSE 82; RESP 16; TEMP 36.4; O2SAT 100
[2021-12-15] MEDS: IBUPROFEN 600 MG TABLET PO ×2 (10:52→18:42)
[2021-12-15] MEDS: MULTIVIT/MIN/PREN/FOL AC/IRON TABLET 1 TAB PO (10:52)
[2021-12-15] MEDS: POLYSACCHARIDE IRON COMPLEX 150 MG CAPSULE PO ×2 (10:52→18:42)
[2021-12-15] MEDS: HYDROcodone/acetaminophen (*CRX) 5-325 MG TABLET 1 TAB PO (10:53)
[2021-12-15] MEDS: LANOLIN (LANSINOH) 7.5 GM CREAM 1 APPLIC TOPICAL (10:54)
[2021-12-15] MEDS: DOCUSATE SODIUM 100 MG CAPSULE PO ×2 (10:54→18:42)
[2021-12-15 11:00] VITALS: PULSE 82; RESP 16; O2SAT 100
--- NOTE | 2021-12-15 12:31 | P.PNOB_ITS ---
OB - PN: Subj Subjective Date/time seen: 12/15/21 12:31 Interval history: ( [employer] hourly sign language interpreter services used.) She said the Motrin Tylenol helped some for an hour so. Lochia decreasing. She is bottle feeding and pumping. Has had a bowel movement this morning no straining felt normal. Patient comments: tolerating diet Telephone baby status: doing well and nursing well OB - PN: Obj Data Labs CBC & Chem 7: 12/14/21 05:12 OB - PN A/P Assessment and Plan (1) anemia: Code(s): O90.81 - Anemia of the puerperium Status: Acute Assessment and Plan: not actively bleeding. Asymptomatic. Continue iron supplementation. Plan day: 2 Plan: routine care Comments: will add additional stronger pain medicine since it seems that in the other medication is not optimal. Routine care. Anticipate discharge tomorrow. Time Spent With Patient Time: Total time spent is greater than 50% in coordination of care (as documented) at patient's floor/unit and/or counseling patient: Exam Psych: Affect: normal affect Other: Abd: fundus firm below umbilicus, nontender Perineum: healing no signs of infection Ext: nontender
[2021-12-15 18:35] VITALS: BP 112/84; PULSE 84; RESP 16; TEMP 36.7; O2SAT 100
[2021-12-15 21:13] VITALS: PULSE 84; RESP 16; O2SAT 100
[2021-12-16] MEDS: IBUPROFEN 600 MG TABLET PO ×2 (01:48→10:45)
--- NOTE | 2021-12-16 08:25 | PC.NURSE ---
PT introductions made and plan of care discussed per post , pain management, bottle feeding, daily care activities and pending discharge PT and spouse both recipients of such instructions and language barriers to learning identified at this time. PT received instructions per one to one discussion, mom baby care guide and demonstrations this shift. Naty Thomas RN was used as an dude ranch manager by speaking Episcopalian. PT verbalized understanding of such care. Opportunity to have any questions answered was provided.
[2021-12-16 09:40] VITALS: BP 114/81; PULSE 98; RESP 18; TEMP 36.6; O2SAT 100
[2021-12-16] MEDS: ACETAMINOPHEN 325 MG TABLET 650 MG PO (10:43)
[2021-12-16] MEDS: MULTIVIT/MIN/PREN/FOL AC/IRON TABLET 1 TAB PO (10:43)
[2021-12-16] MEDS: DOCUSATE SODIUM 100 MG CAPSULE PO (10:43)
[2021-12-16 10:45] VITALS: PULSE 98; RESP 18; O2SAT 100
[2021-12-16] MEDS: POLYSACCHARIDE IRON COMPLEX 150 MG CAPSULE PO (10:45)
--- NOTE | 2021-12-16 11:00 | PC.NURSE ---
Pt received discharge instructions per protocol via Naty Thomas RN who speaks Minda and was able to go over all discharge instructions and answer any questions or concerns. Both parents verbalized understanding of such care.
[2021-12-16] MEDS: WITCH HAZEL 40 PADS 1 PAD TOPICAL (11:40)
[2021-12-16] MEDS: BENZOCAINE 20% AER SPR (*SP) 56 GM CAN 1 SPRAY TOPICAL (11:40)
--- NOTE | 2021-12-16 12:54 | PC.NURSE ---
PT discharged to home ambulatory accompanied by spouse and and taken to waiting car. Follow u pappts confirmed
--- NOTE | 2021-12-16 14:05 | PC.NURSE ---
1114 - Mp CORCORAN is present in the room when RN consulted to review any questions or concerns before the patient goes home. Mother is attempting to breastfeed with a nipple shield, pumping her breast and supplement with formula until her milk flows . She is experiencing engorgement today and together we reviewed preventing engorgement, how to relieve engorgement and there will be a follow up with Mp CORCORAN tomorrow.
--- NOTE | 2021-12-27 10:17 | PM.OBDSVD ---
DS: Admitting Diagnosis Discharge Date 12/16/21 Admitting Diagnosis Labor 2. Gestational diabetes DS: Discharge Diagnosis Discharge Diagnosis Plan vaginal delivery OB - DS: Summary Hospital Course Hospital Course: patient admitted in In early labor. She presented with small amount of vaginal bleeding. And at that time she also had a spontaneous deceleration. She was admitted. She had Pitocin augmentation of labor. She did also have assisted rupture of membranes there was thick meconium noted at the time. She progressed to complete. She had a spontaneous vaginal delivery she sustained a fourtg degree laceration. Post she did well. On day 1. Baby was doing well she was and supplementing. On day 2 her pain control was not adequate. She had additional pain medicine added and this did help her pain. On day 3 patient was doing well had adequate pain control was ambulating well she had had bowel movements and no problems bowel movement started on day 1. She was ambulating without problems. She was discharged to home on day 3. OB Procedures : NST and Ultrasound OB Procedures Intrapartum: Spontaneous Vag Delivery OB Procedures: : None Peripartum Data Infant Delivery Method: Natural Vaginal Laceration Description: Perineal - 4th Degree complications: none Status at Discharge Functional status at discharge: independent ambulation Time Spent with Patient Time attestation: Total time spent providing and/or coordinating discharge services: Exam Const: General: cooperative Orientation/consciousness: oriented to person, oriented to place and oriented to time HENMT: Face/Nose/Sinus: Normal external nose present Eyes: General: appearance normal, both eyes and all related structures Resp: Effort & Inspection: normal respiratory effort GI: Inspection: normal to inspection Skin: General skin exam: normal color Neuro: General: oriented to person, oriented to place and oriented to time Extrem: General: normal to inspection and no calf tenderness Psych: Appearance: grossly normal Mental Status: mental status grossly normal DS: Data Data Completed and Pending Completed studies during hospitalization: Pending at discharge 12/13/21 11:40 Surgical [PTH] Routine Discharge Plan Discharge Attending physician on discharge: Tito Gallo Consulting providers: Suellen Garza ; Mateus Pfeiffer Discharging Clinician: Tito Gallo Anticipated Discharge Date/Time: 12/16/21 10:28 Patient Disposition: Home, Self-Care Activity: may shower, no straining and pelvic rest Diet: regular Wound Care Instructions: follow printed instructions Discharge Instructions: Education: Mom and Baby Guide Given to: Mother Follow-Up: Call your delivering provider's office for an appointment to be seen in: 4 Weeks Mom and baby should come to the [facility] for the follow-up appointment. Appointment Date/Time: December 17, 2021 at 10:00 am What to expect at your follow-up visit: Blood Pressure Check Call [phone] if you are unable to keep your appointment time. BREAST CARE: * Wear a snug supportive bra. * For engorgement discomfort: Breast Feeding: * Apply warm moist washcloths * Express milk as needed to relieve engorgement * Wear loose clothing Bottle Feeding: * May apply ice packs * For sore nipples: * Identify correct latch-on * Apply warm moist washcloths before and after nursing * Air dry nipples after nursing * May apply Lansinoh cream to nipples PERINEAL CARE: * Until bleeding stops, use your sonal bottle after urinating * Change your pad frequently throughout the day * You may take sitz baths several times a day (fill your bathtub with warm water and soak for 20 minutes.) Do NOT bathe i
== END 2021-12-16 12:54 | disposition home or self-care (01) | DRG 560 ==
LOC: ANHLDR 16:22 → ANHOB2 12-13 15:25
PROVIDERS: Admitting Provider Student in an Organized Health Care Education/Training Program; PCP Family Medicine; Visit Provider Obstetrics & Gynecology
DX: O24.424 Gestational diabetes mellitus in childbirth, insulin controlled (principal); O70.3 Fourth degree perineal laceration during delivery; D64.89 Other specified anemias; O76 Abnormality in fetal heart rate and rhythm complicating labor and delivery; O77.0 Labor and delivery complicated by meconium in amniotic fluid; O99.02 Anemia complicating childbirth; Z3A.39 39 weeks gestation of pregnancy; Z37.0 Single live birth
CPT/HCPCS: 36415; 82948; 85014; 85018; 85025; 86592; 86850; 86900; 86901; 88307; A9270; J0690; J2590; J2795; J7120